=== PATIENT | female | born 1955 | race Two or more races ===

== ENCOUNTER 2024-11-29 22:51 | Emergency (ER) | payer OTHER ==
[~2024-11-29] VITALS: Ht 160 cm; Wt 97.5 kg
[2024-11-29] MEDS ORDERED: TOPROL XL50 M1 PO (23:18)
[2024-11-30] MEDS ORDERED: ORPHENADRINE CITRATE 30 MG/ML AMPUL IM STA (00:35)
[2024-11-30] MEDS ORDERED: KETOROLAC TROMETHAMINE 60 MG VIAL IM STA (00:35)
[2024-11-30] MEDS ORDERED: MELOXICAM15 MG PO (02:02)
== END 2024-11-30 02:17 ==
LOC: ER 22:51
DX: S89.80XA Other specified injuries of unspecified lower leg, initial encounter (principal); S46.911A Strain of unspecified muscle, fascia and tendon at shoulder and upper arm level, right arm, initial encounter; S39.012A Strain of muscle, fascia and tendon of lower back, initial encounter; W19.XXXA Unspecified fall, initial encounter; Y93.89 Activity, other specified; Y92.59 Other trade areas as the place of occurrence of the external cause; Y99.8 Other external cause status; Z88.0 Allergy status to penicillin; Z88.2 Allergy status to sulfonamides
CPT/HCPCS: 72070; 73030; 73565; 96372; 99283; J1885; J2360